=== PATIENT | female | born 1945 | race Caucasian/White ===

== ENCOUNTER 2018-12-02 09:36 | Outpatient (REF) | payer MEDICARE, SELFPAY ==
[2018-12-02 22:06] LABS: Abs Immature Grans 0.01 k/cumm (0.0-0.09); Absolute Basophil Count 0.02 k/cumm (0.0-0.2); Absolute Eosinophil Count 0.12 k/cumm (0.0-0.7); Absolute Lymphocyte Count 1.49 k/cumm (1.2-3.4); Absolute Monocyte Count 0.51 k/cumm (0.11-0.7); Absolute Neutrophil Count 3.67 k/cumm (1.2-6.7); Basophils % 0.3; Eosinophils % 2.1; HGB 13.1 g/dL (12.0-15.5); Immature Grans % 0.2; Lymphocytes % 25.6; Mean Corp. HGB Concentration 32.8 g/dL (32.0-36.0); Mean Corpuscular Hemoglobin 29.8 pg (27.0-33.0); Mean Corpuscular Volume 90.9 fL (80-95); Mean Platelet Volume 11.6 fL (8.0-11.0); Monocytes % 8.8; Platelet Count 222 x1000/uL (130-400); RBC Distribution Width 13.2 % (11.7-14.6); White Blood Cell Count 5.82 k/cumm (4.4-10.8)
[2018-12-02 22:11] LABS: ALT 28 U/L (12-78); AST 28 U/L (15-37); Albumin 3.9 g/dL (3.4-5.0); Alkaline Phosphatase 75 U/L (46-116); Anion Gap 11.6 mmol/L (3-11); BUN 13 mg/dL (7-18); Bilirubin, Total 0.3 mg/dL (0.2-1.0); CO2 26.4 mmol/L (21.0-32.0); CREATININE 0.68 mg/dL (0.55-1.02); Calcium 9.6 mg/dL (8.5-10.1); Chloride 104 mmol/L (98-107); Glucose 82 mg/dL (70-100); PHENOBARBITAL 13.2 ug/mL (15.0-40.0); Potassium 3.9 mmol/L (3.5-5.1); Sodium 142 mmol/L (136-145); Total Protein 8.2 g/dL (6.4-8.2)
== END 2018-12-02 09:56 ==
LOC: NCHCN 09:36
PROVIDERS: PCP Registered Nurse; Visit Provider Registered Nurse
DX: M06.9 Rheumatoid arthritis, unspecified (principal); Z51.81 Encounter for therapeutic drug level monitoring; Z79.899 Other long term (current) drug therapy
CPT/HCPCS: 80053; 80184; 85025

== ENCOUNTER 2019-12-17 21:12 | Outpatient (REF) | payer OTHER, SELFPAY ==
[2019-12-17 20:19] LABS: ALT 20 U/L (14-59); AST 21 U/L (15-37); Alkaline Phosphatase 86 U/L (46-116); Anion Gap 12.2 mmol/L (3-11); BUN 13 mg/dL (7-18); Bilirubin, Total 0.3 mg/dL (0.2-1.0); CO2 25.8 mmol/L (21.0-32.0); CREATININE 0.71 mg/dL (0.55-1.02); Calcium 9.4 mg/dL (8.5-10.1); Calculated LDL 142 mg/dL (<100); Chloride 106 mmol/L (98-107); Cholesterol 224 mg/dL (<200); Glucose 92 mg/dL (74-106); HDL Cholesterol 62 mg/dL (40-60); Potassium 3.9 mmol/L (3.5-5.1); Sodium 144 mmol/L (136-145); Total Protein 8.5 g/dL (6.4-8.2); Triglyceride 101 mg/dL (<150)
== END 2019-12-17 21:32 ==
LOC: NCHCN 21:12
PROVIDERS: PCP Registered Nurse; Visit Provider Registered Nurse
DX: R03.0 Elevated blood-pressure reading, without diagnosis of hypertension (principal); E78.89 Other lipoprotein metabolism disorders
CPT/HCPCS: 80053; 80061

== ENCOUNTER 2020-12-22 15:22 | Outpatient (REF) | payer OTHER, SELFPAY ==
[2020-12-22 14:32] LABS: ALT 19 U/L (14-59); AST 23 U/L (15-37); Alkaline Phosphatase 88 U/L (46-116); Anion Gap 11.4 mmol/L (3-11); BUN 21 mg/dL (7-18); Bilirubin, Total 0.2 mg/dL (0.2-1.0); CO2 26.6 mmol/L (21.0-32.0); CREATININE 0.7 mg/dL (0.55-1.02); Calcium 9.1 mg/dL (8.5-10.1); Chloride 104 mmol/L (98-107); Glucose 94 mg/dL (74-106); Potassium 3.8 mmol/L (3.5-5.1); Sodium 142 mmol/L (136-145); Total Protein 8.6 g/dL (6.4-8.2)
[2020-12-22 14:37] LABS: Abs Immature Grans 0.03 10^3/uL (0.0-0.06); Absolute Basophil Count 0.04 10^3/uL (0.0-0.2); Absolute Eosinophil Count 0.33 10^3/uL (0.0-0.7); Absolute Monocyte Count 0.54 10^3/uL (0.1-0.8); Absolute Neutrophil Count 3.55 10^3/uL (1.2-6.7); Basophils % 0.7; Eosinophils % 5.4; HCT 40.7 % (36.0-46.0); Immature Grans % 0.5; Lymphocytes % 26.3; MCH 30.1 pg (27.0-33.0); MCHC 31.9 % (32.0-36.0); MCV 94.2 fL (80-95); MPV 11.1 fL (8.0-11.0); Monocytes % 8.9; Neutrophils % 58.2; Nucleated RBC 0 %; Platelet Count 234 10^3/uL (130-400); RBC 4.32 10^6/uL (3.93-5.22); RDW 12.8 % (11.7-14.6); RDW-SD 44.8 fL; WBC 6.09 10^3/uL (4.4-10.8)
== END 2020-12-22 15:23 | disposition home or self-care (01) ==
LOC: NCHCN 15:22
PROVIDERS: PCP Registered Nurse; Visit Provider Registered Nurse
DX: Z79.899 Other long term (current) drug therapy (principal)
CPT/HCPCS: 80053; 85025

== ENCOUNTER 2021-02-28 17:13 | Outpatient (REF) | payer MEDICARE, SELFPAY ==
[2021-02-28 22:19] LABS: C-Reactive Protein 0.28 mg/dL (0.0-0.3)
[2021-03-01 16:46] LABS: Rheumatoid Factor <8.6 IU/mL (<12.0)
[2021-03-02 10:13] LABS: Cyclic Citrullinated Peptide <2.5 U/mL (<5.0)
[2021-03-02 14:32] LABS: ANA Interpretation Positive (Negative); ANA Titer Pattern 1:320 Speckled
== END 2021-02-28 17:14 | disposition home or self-care (01) ==
LOC: LBN 17:13
PROVIDERS: Internal Medicine Pulmonary Disease; PCP Registered Nurse; Visit Provider Registered Nurse
DX: J84.9 Interstitial pulmonary disease, unspecified (principal)
CPT/HCPCS: 86200; 86038; 86140; 86431

== ENCOUNTER 2021-03-18 11:01 | Outpatient (REF) | payer MEDICARE, SELFPAY ==
[2021-03-22 13:26] LABS: RNP Ab, IgG 33.9 Units (<20.0); SS-B (La) Ab, IgG 9.2 Units (<20.0); Sm (Smith) Ab, IgG 7.1 Units (<20.0)
== END 2021-03-18 11:02 | disposition home or self-care (01) ==
LOC: LBN 11:01
PROVIDERS: PCP Registered Nurse; Visit Provider Internal Medicine Pulmonary Disease
DX: J84.9 Interstitial pulmonary disease, unspecified (principal)
CPT/HCPCS: 86235

== ENCOUNTER 2022-01-04 09:11 | Outpatient (REF) | payer MEDICARE, SELFPAY ==
[2022-01-04 18:13] LABS: HCT 41.3 % (36.0-46.0); HGB 13.6 g/dL (11.2-15.7); MCH 30.9 pg (27.0-33.0); MCHC 32.9 % (32.0-36.0); MCV 94 fL (80-95); MPV 11.1 fL (8.0-11.0); Platelet Count 231 10^3/uL (130-400); RDW 13.3 % (11.7-14.6); RDW-SD 46.6 fL; WBC 8.23 10^3/uL (4.4-10.8)
[2022-01-04 18:23] LABS: ALT 23 U/L (14-59); AST 21 U/L (15-37); Albumin 3.6 g/dL (3.4-5.0); Alkaline Phosphatase 67 U/L (46-116); Anion Gap 8.6 mmol/L (3-11); BUN 14 mg/dL (7-18); Bilirubin, Total 0.3 mg/dL (0.2-1.0); CO2 27.4 mmol/L (21.0-32.0); CREATININE 0.7 mg/dL (0.55-1.02); Calcium 8.7 mg/dL (8.5-10.1); Calculated LDL 125 mg/dL (<100); Chloride 107 mmol/L (98-107); Cholesterol 211 mg/dL (<200); Estimated GFR 88.47 (mL/min/1.73m2); Glucose 96 mg/dL (74-106); HDL Cholesterol 69 mg/dL (40-60); Potassium 3.8 mmol/L (3.5-5.1); Sodium 143 mmol/L (136-145); TSH 1.32 uIU/mL (0.36-3.74); Total Protein 7.8 g/dL (6.4-8.2); Triglyceride 87 mg/dL (<150)
== END 2022-01-04 09:12 | disposition home or self-care (01) ==
LOC: NCHCN 09:11
PROVIDERS: PCP Registered Nurse; Visit Provider Registered Nurse
DX: E78.5 Hyperlipidemia, unspecified (principal); Z79.899 Other long term (current) drug therapy; M85.88 Other specified disorders of bone density and structure, other site; Z13.29 Encounter for screening for other suspected endocrine disorder
CPT/HCPCS: 80053; 80061; 85027; 83036; 84443

== ENCOUNTER 2022-07-10 20:01 | Outpatient (REF) | payer MEDICARE, SELFPAY ==
--- OUTSIDE RECORDS SUMMARY | 2022-07-10 20:05 | XMS_ITS | CCD ---
Author Name Unknown Address [address] [place] [address] [phone] Organization Unknown Address [address] [place] [address] [phone] Care Team Providers Care Jet Dyeing Machine Tender Name Role Phone HANNA MCGILL Attending Physician [phone] Vital Signs Unknown or Not Available. Allergies Allergy Code Allergy Type Reaction Status No Known Allergies 0 No known allergies Active Procedures Unknown or Not Available. History of Immunizations Unknown or Not Available. Problems Problem Code Start Date Resolved Date Status Seizure disorder [id number] Active Results Unknown or Not Available. Active Medications Unknown or Not Available. Medications Administered During Visit Unknown or Not Available. Encounters Encounter Diagnosis Diagnosis Code Start Date Cough R05 01/25/2021 Social History Smoking Status Code Start Date End Date Never smoker [id number] Patient Decision Aids Unknown or Not Available. Discharge Instructions You were admitted to [facility] on 01/25/2021 09:23 with a principal diagnosis of Cough You were discharged from [facility] on 01/25/2021 09:24 Should you have any questions prior to discharge, please contact a member of your healthcare team. If you have left the hospital and have any questions, please contact your primary care physician. Chief Complaint and Reason For Visit Unknown or Not Available. Function Status Unknown or Not Available. Plan of Care Unknown or Not Available. Referral/Transition of Care Unknown or Not Available.
--- OUTSIDE RECORDS SUMMARY | 2022-07-10 20:06 | XMS_ITS | CCD ---
Author Name Unknown Address [address] [place] [address] [phone] Organization Unknown Address [address] [place] [address] [phone] Care Team Providers Care Wafer Batter Mixer Name Role Phone ANISA REDDY Attending Physician [phone] Vital Signs Unknown or Not Available. Allergies Allergy Code Allergy Type Reaction Status No Known Allergies 0 No known allergies Active Procedures Unknown or Not Available. History of Immunizations Unknown or Not Available. Problems Problem Code Start Date Resolved Date Status Seizure disorder [id number] Active Results Unknown or Not Available. Active Medications Unknown or Not Available. Medications Administered During Visit Unknown or Not Available. Encounters Encounter Diagnosis Diagnosis Code Start Date Encounter for screening mamm ogram for malignant neoplasm of breast [id number] 02/02/2021 Social History Smoking Status Code Start Date End Date Never smoker [id number] Patient Decision Aids Unknown or Not Available. Discharge Instructions You were admitted to [facility] on 02/02/2021 09:02 with a principal diagnosis of Encounter for screening mammogram for malignant neoplasm of breast You were discharged from [facility] on 02/02/2021 09:02 Should you have any questions prior to [...]
== END 2022-07-10 20:02 | disposition home or self-care (01) ==
LOC: NCHCN 20:01
PROVIDERS: PCP Registered Nurse; Visit Provider Family Medicine
DX: R39.89 Other symptoms and signs involving the genitourinary system (principal)
CPT/HCPCS: 87077; 87086; 87186

== ENCOUNTER 2023-01-01 09:34 | Outpatient (REF) | payer MEDICARE, SELFPAY | END 2023-01-01 09:35 | disposition home or self-care (01) | LOC: NCHCN 09:34 | PROVIDERS: PCP Registered Nurse; Visit Provider Registered Nurse | DX: R39.89 Other symptoms and signs involving the genitourinary system (principal); R82.79 Other abnormal findings on microbiological examination of urine | CPT/HCPCS: 87077; 87086; 87186 ==

== ENCOUNTER 2023-01-17 18:38 | Outpatient (REF) | payer MEDICARE, SELFPAY | END 2023-01-17 18:39 | disposition home or self-care (01) | LOC: NCHCN 18:38 | PROVIDERS: PCP Registered Nurse; Visit Provider Internal Medicine | DX: R39.89 Other symptoms and signs involving the genitourinary system (principal); R82.79 Other abnormal findings on microbiological examination of urine | CPT/HCPCS: 87077; 87086; 87186 ==

== ENCOUNTER 2023-10-10 09:18 | Outpatient (REF) | payer MEDICARE, SELFPAY ==
[2023-10-10 14:42] LABS: Abs Immature Grans 0.09 10^3/uL (0.0-0.06); Absolute Basophil Count 0.05 10^3/uL (0.0-0.2); Absolute Eosinophil Count 0.04 10^3/uL (0.0-0.7); Absolute Monocyte Count 0.58 10^3/uL (0.1-0.8); Absolute Neutrophil Count 6.41 10^3/uL (1.2-6.7); Basophils % 0.5 %; Eosinophils % 0.4 %; HCT 40.4 % (36.0-46.0); HGB 13.3 g/dL (11.2-15.7); Immature Grans % 0.9 %; Lymphocytes % 27.4 %; MCH 30.9 pg (27.0-33.0); MCHC 32.9 % (32.0-36.0); MCV 94 fL (80-95); MPV 10.7 fL (8.0-11.0); Monocytes % 5.9 %; Neutrophils % 64.9 %; Platelet Count 246 10^3/uL (130-400); RDW 13.4 % (11.7-14.6); RDW-SD 46.5 fL; WBC 9.87 10^3/uL (4.4-10.8)
[2023-10-10 15:15] LABS: ALT 25 U/L (14-59); AST 23 U/L (15-37); Albumin 3.3 g/dL (3.4-5.0); Alkaline Phosphatase 83 U/L (46-116); BUN 17 mg/dL (7-18); Bilirubin, Total 0.3 mg/dL (0.2-1.0); CREATININE 0.7 mg/dL (0.55-1.02); Chloride 106 mmol/L (98-107); Estimated GFR 87.37 (mL/min/1.73m2); Glucose 94 mg/dL (74-106); Potassium 4.1 mmol/L (3.5-5.1); Sodium 142 mmol/L (136-145); Total Protein 7.7 g/dL (6.4-8.2)
== END 2023-10-10 09:19 | disposition home or self-care (01) ==
LOC: NCHCN 09:18
PROVIDERS: PCP Registered Nurse; Visit Provider Family Medicine
DX: R73.03 Prediabetes (principal); R56.9 Unspecified convulsions
CPT/HCPCS: 80053; 83036; 85025

== ENCOUNTER 2023-12-07 19:11 | Outpatient (REF) | payer MEDICARE, SELFPAY ==
[2023-12-07 15:20] LABS: Anion Gap 8.1 mmol/L (3-11); BUN 7 mg/dL (7-18); CO2 27.9 mmol/L (21.0-32.0); CREATININE 0.8 mg/dL (0.55-1.02); Calcium 8.6 mg/dL (8.5-10.1); Chloride 105 mmol/L (98-107); Estimated GFR 74.44 (mL/min/1.73m2); Glucose 99 mg/dL (74-106); Magnesium 1.5 mg/dL (1.8-2.4); Potassium 3.3 mmol/L (3.5-5.1); Sodium 141 mmol/L (136-145)
== END 2023-12-07 19:12 | disposition home or self-care (01) ==
LOC: NCHCN 19:11
PROVIDERS: PCP Registered Nurse; Visit Provider Family Medicine
DX: I50.9 Heart failure, unspecified (principal); E87.21 Acute metabolic acidosis; D72.829 Elevated white blood cell count, unspecified
CPT/HCPCS: 80048; 83735

== ENCOUNTER 2023-12-28 18:50 | Outpatient (REF) | payer MEDICARE, SELFPAY ==
[2023-12-28 18:20] LABS: Anion Gap 13.9 mmol/L (3-11); BUN 16 mg/dL (7-18); CO2 20.1 mmol/L (21.0-32.0); CREATININE 0.8 mg/dL (0.55-1.02); Calcium 9.4 mg/dL (8.5-10.1); Chloride 104 mmol/L (98-107); Estimated GFR 74.44 (mL/min/1.73m2); Glucose 165 mg/dL (74-106); Potassium 4.7 mmol/L (3.5-5.1); Sodium 138 mmol/L (136-145)
== END 2023-12-28 18:51 | disposition home or self-care (01) ==
LOC: LBN 18:50
PROVIDERS: PCP Registered Nurse; Visit Provider Family Medicine
DX: I50.9 Heart failure, unspecified (principal); R74.01 Elevation of levels of liver transaminase levels; E70.5 Disorders of tryptophan metabolism
CPT/HCPCS: 80048

== ENCOUNTER 2024-01-22 12:28 | Outpatient (REF) | payer MEDICARE, SELFPAY ==
[2024-01-22 16:32] LABS: ESR 32 mm/hr (0-30)
[2024-01-22 17:00] LABS: Anion Gap 9.7 mmol/L (3-11); BUN 25 mg/dL (7-18); CO2 26.3 mmol/L (21.0-32.0); CREATININE 0.8 mg/dL (0.55-1.02); Calcium 9.2 mg/dL (8.5-10.1); Calculated LDL 101 mg/dL (<100); Chloride 105 mmol/L (98-107); Cholesterol 186 mg/dL (<200); Estimated GFR 74.44 (mL/min/1.73m2); Glucose 81 mg/dL (74-106); HDL Cholesterol 60 mg/dL (40-60); Potassium 4.1 mmol/L (3.5-5.1); Sodium 141 mmol/L (136-145); Triglyceride 129 mg/dL (<150)
[2024-02-01 13:27] LABS: Misc Referral (MAYO) See Comments
== END 2024-01-22 12:29 | disposition home or self-care (01) ==
LOC: NCHCN 12:28
PROVIDERS: PCP Registered Nurse; Visit Provider Family Medicine
DX: E78.5 Hyperlipidemia, unspecified (principal); R56.9 Unspecified convulsions; J84.9 Interstitial pulmonary disease, unspecified
CPT/HCPCS: 80048; 80061; 80184; 85652

== ENCOUNTER 2024-02-19 10:15 | Outpatient (REF) | payer MEDICARE, SELFPAY ==
[2024-02-19 14:10] LABS: Abs Immature Grans 0.05 10^3/uL (0.0-0.06); Absolute Basophil Count 0.07 10^3/uL (0.0-0.2); Absolute Eosinophil Count 0.13 10^3/uL (0.0-0.7); Absolute Lymphocyte Count 4.12 10^3/uL (1.2-3.4); Absolute Monocyte Count 0.84 10^3/uL (0.1-0.8); Absolute Neutrophil Count 6.33 10^3/uL (1.2-6.7); Basophils % 0.6 %; Eosinophils % 1.1 %; HCT 39.2 % (36.0-46.0); HGB 12.6 g/dL (11.2-15.7); Immature Grans % 0.4 %; Lymphocytes % 35.7 %; MCH 29.1 pg (27.0-33.0); MCHC 32.1 % (32.0-36.0); MCV 91 fL (80-95); Monocytes % 7.3 %; Neutrophils % 54.9 %; Platelet Count 284 10^3/uL (130-400); RBC 4.33 10^6/uL (3.93-5.22); RDW 14.2 % (11.7-14.6); RDW-SD 47.7 fL; WBC 11.53 10^3/uL (4.4-10.8)
[2024-02-19 14:22] LABS: Magnesium 1.8 mg/dL (1.8-2.4); PHENOBARBITAL 21.3 ug/mL (15.0-40.0); Potassium 3.7 mmol/L (3.5-5.1)
== END 2024-02-19 10:16 | disposition home or self-care (01) ==
LOC: NCHCN 10:15
PROVIDERS: PCP Registered Nurse; Visit Provider Family Medicine
DX: G40.909 Epilepsy, unspecified, not intractable, without status epilepticus (principal)
CPT/HCPCS: 80184; 83735; 84132; 85025

== ENCOUNTER 2024-06-13 21:26 | Outpatient (REF) | payer MEDICARE, SELFPAY ==
[2024-06-13 21:58] LABS: ESR 32 mm/hr (0-30)
== END 2024-06-13 21:27 | disposition home or self-care (01) ==
LOC: NCHCN 21:26
PROVIDERS: PCP Registered Nurse; Referring Provider Family Medicine; Visit Provider Internal Medicine Pulmonary Disease
DX: J84.9 Interstitial pulmonary disease, unspecified (principal)
CPT/HCPCS: 85652

== ENCOUNTER 2024-11-17 14:02 | Outpatient (REF) | payer MEDICARE, SELFPAY ==
[2024-11-17 16:25] LABS: Hemoglobin A1C 5.7 % (<5.7)
[2024-11-17 16:42] LABS: ALT 27 U/L (14-59); AST 19 U/L (15-37); Albumin 3.7 g/dL (3.4-5.0); Alkaline Phosphatase 72 U/L (46-116); Anion Gap 8.8 mmol/L (3-11); BUN 21 mg/dL (7-18); Bilirubin, Total 0.3 mg/dL (0.2-1.0); CO2 30.2 mmol/L (21.0-32.0); Calcium 9.1 mg/dL (8.5-10.1); Calculated LDL 84 mg/dL (<100); Chloride 103 mmol/L (98-107); Cholesterol 176 mg/dL (<200); Estimated GFR 73.98 (mL/min/1.73m2); Glucose 70 mg/dL (74-106); HDL Cholesterol 78 mg/dL (>or=50); Potassium 4.1 mmol/L (3.5-5.1); Sodium 142 mmol/L (136-145); Total Protein 7.6 g/dL (6.4-8.2); Triglyceride 73 mg/dL (<150)
[2024-11-17 16:45] LABS: Iron 94 ug/dL (50-170); Total Iron Binding Capacity 273 ug/dL (250-450); Transferrin Sat 34 % (15-50)
== END 2024-11-17 14:03 | disposition home or self-care (01) ==
LOC: NCHCN 14:02
PROVIDERS: PCP Registered Nurse; Visit Provider Family Medicine
DX: E78.5 Hyperlipidemia, unspecified (principal); Z00.00 Encounter for general adult medical examination without abnormal findings; R73.03 Prediabetes; Z13.0 Encounter for screening for diseases of the blood and blood-forming organs and certain disorders involving the immune mechanism
CPT/HCPCS: 80053; 80061; 83036; 83540; 83550